=== PATIENT | male | born 1970 | race Caucasian/White ===

== ENCOUNTER 2017-12-02 22:46 | Emergency (ER) | payer MEDICAID ==
[~2017-12-02] VITALS: Ht 165.1 cm; Wt 79.8 kg
[2017-12-02 22:52] VITALS: BP_SYST 127
[2017-12-02] MEDS ORDERED: NACL 0.9% 1,000 ML IV ONE (23:47)
[2017-12-03] MEDS ORDERED: ONDANSETRON HCL 4 MG/2 ML VIAL IVP ONE
[2017-12-03] MEDS ORDERED: KETOROLAC TROMETHAMINE 30 MG VIAL IVP ONE
[2017-12-03 00:28] LABS: BASOPHILS # (AUTO) 0.2 K/uL (0.0-0.2); BASOPHILS % (AUTO) 1.6 % (0.0-2.0); EOSINOPHILS # (AUTO) 0.4 K/uL (0.0-0.4); EOSINOPHILS % (AUTO) 4.1 % (0.0-4.0); HEMATOCRIT 33.8 % (36-54); HEMOGLOBIN 10.9 g/dL (14.0-18.0); LYMPHOCYTES # (AUTO) 3.4 K/uL (1.0-5.5); LYMPHOCYTES % (AUTO) 34.9 % (20.5-51.5); MEAN CORPUSCULAR HEMOGLOBIN 23 pg (27-31); MEAN CORPUSCULAR HGB CONC 32 % (32-36); MEAN CORPUSCULAR VOLUME 72 fL (79.0-98.0); MONOCYTES # (AUTO) 0.7 K/uL (0.0-1.0); MONOCYTES % (AUTO) 7.3 % (1.7-9.3); NEUTROPHILS # (AUTO) 5.1 K/uL (1.8-7.7); NEUTROPHILS % (AUTO) 52.1 % (40.0-70.0); PLATELET COUNT (AUTO) 363 K/uL (130-430); RED BLOOD CELL COUNT(AUTO) 4.72 MIL/uL (4.2-6.2); RED CELL DISTRIBUTION WIDTH 16.5 % (9.0-15.0); WHITE BLOOD COUNT (AUTO) 9.8 K/uL (4.8-10.8)
[2017-12-03] MEDS ORDERED: LIDOCAINE VISCOUS 2%, 15 ML UDC MM ONE (00:45)
[2017-12-03] MEDS ORDERED: BELLADONNA ALKALOIDS/PHENOBARB 5 ML UDC PO ONE (00:45)
[2017-12-03] MEDS ORDERED: MAG-AL HYDROX/SIMETH 30 ML UDC PO ONE (00:45)
[2017-12-03 00:46] LABS: CALCIUM 8.6 mg/dL (8.4-11.0); CREATININE 0.74 mg/dL (0.55-1.30); POTASSIUM 3.4 mmol/L (3.5-5.1)
[2017-12-03 00:50] LABS: ALBUMIN 3.2 g/dL (3.4-4.8); TOTAL BILIRUBIN 0.3 mg/dL (0.0-1.0)
[2017-12-03 01:25] VITALS: BP_SYST 101
== END 2017-12-03 01:45 | disposition home or self-care (01) ==
LOC: SED 22:46
DX: K80.20 Calculus of gallbladder without cholecystitis without obstruction (principal); K29.70 Gastritis, unspecified, without bleeding; Z90.89 Acquired absence of other organs
CPT/HCPCS: 36415; 76700; 80053; 83690; 85025; 96374; 96375; 99285; J1885; J2001; J2405

== ENCOUNTER 2017-12-20 01:41 | Emergency (ER) | payer MEDICAID ==
[~2017-12-20] VITALS: Ht 152.4 cm; Wt 79.8 kg
[2017-12-20 01:48] VITALS: BP_SYST 140
[2017-12-20] MEDS ORDERED: ONDANSETRON HCL 4 MG/2 ML VIAL IVP ONE (02:00)
[2017-12-20] MEDS ORDERED: MORPHINE 4 MG/ML INJ. SYRINGE IVP ONE (02:00)
[2017-12-20 02:24] LABS: CALCIUM 8.6 mg/dL (8.4-11.0); CREATININE 0.85 mg/dL (0.55-1.30); POTASSIUM 3.7 mmol/L (3.5-5.1)
[2017-12-20 02:29] LABS: ALBUMIN 3.2 g/dL (3.4-4.8); TOTAL BILIRUBIN 0.3 mg/dL (0.0-1.0)
[2017-12-20 02:30] LABS: BASOPHILS # (AUTO) 0.1 K/uL (0.0-0.2); BASOPHILS % (AUTO) 1.2 % (0.0-2.0); EOSINOPHILS # (AUTO) 0.5 K/uL (0.0-0.4); EOSINOPHILS % (AUTO) 4.1 % (0.0-4.0); HEMATOCRIT 36.4 % (36-48); HEMOGLOBIN 11.6 g/dL (12.0-16.0); LYMPHOCYTES # (AUTO) 4.7 K/uL (1.0-5.5); MEAN CORPUSCULAR HEMOGLOBIN 23 pg (27-31); MEAN CORPUSCULAR HGB CONC 32 % (32-36); MONOCYTES # (AUTO) 0.7 K/uL (0.0-1.0); MONOCYTES % (AUTO) 5.9 % (1.7-9.3); NEUTROPHILS # (AUTO) 6.3 K/uL (1.8-7.7); PLATELET COUNT (AUTO) 352 K/uL (130-430); RED CELL DISTRIBUTION WIDTH 16.9 % (9.0-15.0); WHITE BLOOD COUNT (AUTO) 12.3 K/uL (4.8-10.8)
[2017-12-20] MEDS ORDERED: LIDOCAINE VISCOUS 2%, 15 ML UDC MM ONE (02:45)
[2017-12-20] MEDS ORDERED: MAG-AL HYDROX/SIMETH 30 ML UDC PO ONE (02:45)
[2017-12-20] MEDS ORDERED: KETOROLAC TROMETHAMINE 30 MG VIAL IVP ONE (02:45)
[2017-12-20 03:12] LABS: MEAN CORPUSCULAR VOLUME 71 fL (79.0-98.0)
[2017-12-20 03:13] LABS: NEUTROPHILS % (AUTO) 50.8 % (40.0-70.0)
[2017-12-20 03:23] LABS: BILIRUBIN,URINE NEGATIVE (NEGATIVE); BLOOD, URINE NEGATIVE (NEGATIVE); CLARITY/URINE SL HAZY (CLEAR); COLOR,URINE YELLOW (YELLOW); GLUCOSE,URINE NEGATIVE (NEGATIVE); KETONES,URINE TRACE (NEGATIVE); LEUKOCYTE ESTERASE ,URINE NEGATIVE (NEGATIVE); NITRITE, URINE NEGATIVE (NEGATIVE); PROTEIN URINE TRACE (NEGATIVE); UROBILINOGEN,URINE 0.2 (0.2-1.0)
[2017-12-20 04:13] VITALS: BP_SYST 112
== END 2017-12-20 04:13 | disposition home or self-care (01) ==
LOC: SED 01:41
DX: K80.20 Calculus of gallbladder without cholecystitis without obstruction (principal); R03.0 Elevated blood-pressure reading, without diagnosis of hypertension
CPT/HCPCS: 36415; 74176; 80053; 81003; 82150; 83690; 85025; 96374; 96375; 99285; J1885; J2001; J2270; J2405

== ENCOUNTER 2017-12-22 02:01 | Emergency (ER) | payer MEDICAID ==
[~2017-12-22] VITALS: Ht 165.1 cm; Wt 75.7 kg
[2017-12-22 02:06] VITALS: BP_SYST 150
[2017-12-22] MEDS ORDERED: NACL 0.9% 1,000 ML IV ONE (03:25)
[2017-12-22] MEDS ORDERED: ONDANSETRON HCL 4 MG/2 ML VIAL IVP ONE (03:30)
[2017-12-22] MEDS ORDERED: PANTOPRAZOLE SODIUM 40 MG/VIAL (PROTONIX) IVP ONE (03:30)
[2017-12-22] MEDS ORDERED: KETOROLAC TROMETHAMINE 30 MG VIAL IVP ONE (03:30)
[2017-12-22] MEDS ORDERED: DIPHENHYDRAMINE INJ 50 MG/ML VIAL IVP ONE (03:30)
[2017-12-22] MEDS ORDERED: MORPHINE 4 MG/ML INJ. SYRINGE IVP ONE (03:30)
[2017-12-22 03:44] LABS: BASOPHILS # (AUTO) 0.1 K/uL (0.0-0.2); BASOPHILS % (AUTO) 0.5 % (0.0-2.0); EOSINOPHILS # (AUTO) 0.4 K/uL (0.0-0.4); EOSINOPHILS % (AUTO) 3.2 % (0.0-4.0); HEMATOCRIT 36.4 % (36-48); HEMOGLOBIN 11.1 g/dL (12.0-16.0); LYMPHOCYTES # (AUTO) 3.9 K/uL (1.0-5.5); LYMPHOCYTES % (AUTO) 33.5 % (20.5-51.5); MEAN CORPUSCULAR HEMOGLOBIN 22 pg (27-31); MEAN CORPUSCULAR HGB CONC 31 % (32-36); MEAN CORPUSCULAR VOLUME 72 fL (79.0-98.0); MONOCYTES # (AUTO) 0.8 K/uL (0.0-1.0); MONOCYTES % (AUTO) 6.7 % (1.7-9.3); NEUTROPHILS # (AUTO) 6.5 K/uL (1.8-7.7); NEUTROPHILS % (AUTO) 56.1 % (40.0-70.0); PLATELET COUNT (AUTO) 328 K/uL (130-430); RED BLOOD CELL COUNT(AUTO) 5.06 MIL/uL (4.2-6.2); RED CELL DISTRIBUTION WIDTH 16.3 % (9.0-15.0); WHITE BLOOD COUNT (AUTO) 11.7 K/uL (4.8-10.8)
[2017-12-22 03:55] LABS: CALCIUM 8.5 mg/dL (8.4-11.0); CREATININE 0.76 mg/dL (0.55-1.30); POTASSIUM 3.4 mmol/L (3.5-5.1)
[2017-12-22 04:01] LABS: ALBUMIN 3.1 g/dL (3.4-4.8); TOTAL BILIRUBIN 0.3 mg/dL (0.0-1.0)
[2017-12-22 04:50] VITALS: BP_SYST 135
== END 2017-12-22 04:50 | disposition home or self-care (01) ==
LOC: SED 02:01
DX: K80.20 Calculus of gallbladder without cholecystitis without obstruction (principal)
CPT/HCPCS: 36415; 80053; 83690; 85025; 96361; 96374; 96375; 99284; C9113; J1200; J1885; J2270; J2405; J7030

== ENCOUNTER 2018-11-15 03:24 | Emergency (ER) | payer MEDICAID ==
[~2018-11-15] VITALS: Ht 152.4 cm; Wt 74.8 kg
[2018-11-15 03:24] VITALS: BP_SYST 152
--- NOTE | 2018-11-15 03:24 | NUR ---
Pt ambulatory to bed 8 for evaluation
[2018-11-15] MEDS ORDERED: NACL 0.9% 1,000 ML IV ONE (03:29)
[2018-11-15] MEDS ORDERED: ONDANSETRON HCL 4 MG/2 ML VIAL IVP ONE (03:30)
[2018-11-15] MEDS ORDERED: KETOROLAC TROMETHAMINE 30 MG VIAL IVP ONE (03:30)
--- NOTE | 2018-11-15 03:30 | NUR ---
Patient brought to ER by son for complaint of epigastric pain 10/10 radiating to right lower back since 0000 tonight. Patient also complains of N/V. Patient medicated with 2 doses of [place] without relief. Patient has hx of gallstones and gastritis.
--- NOTE | 2018-11-15 03:35 | NUR ---
ER at bedside examining patient.
--- NOTE | 2018-11-15 03:38 | NUR ---
# 20 gauge angiocath placed to LAC. Use of asceptic technique. Opsite placed over site. Blood return noted. Blood for lab drawn from site. Flushed with 10 cc of normal saline. No evidence of infiltration noted. Patient tolerated well.
[2018-11-15 03:47] LABS: BASOPHILS # (AUTO) 0.1 K/uL (0.0-0.2); BASOPHILS % (AUTO) 0.8 % (0.0-2.0); EOSINOPHILS # (AUTO) 0.5 K/uL (0.0-0.4); EOSINOPHILS % (AUTO) 4.4 % (0.0-4.0); HEMATOCRIT 40.7 % (36-48); HEMOGLOBIN 12.8 g/dL (12.0-16.0); LYMPHOCYTES # (AUTO) 4.4 K/uL (1.0-5.5); LYMPHOCYTES % (AUTO) 37.1 % (20.5-51.5); MEAN CORPUSCULAR HEMOGLOBIN 23 pg (27-31); MEAN CORPUSCULAR HGB CONC 32 % (32-36); MEAN CORPUSCULAR VOLUME 71 fL (79.0-98.0); MONOCYTES # (AUTO) 0.7 K/uL (0.0-1.0); NEUTROPHILS # (AUTO) 6.2 K/uL (1.8-7.7); NEUTROPHILS % (AUTO) 51.7 % (40.0-70.0); PLATELET COUNT (AUTO) 309 K/uL (130-430); RED BLOOD CELL COUNT(AUTO) 5.71 MIL/uL (4.2-6.2); RED CELL DISTRIBUTION WIDTH 17.9 % (9.0-15.0); WHITE BLOOD COUNT (AUTO) 11.9 K/uL (4.8-10.8)
[2018-11-15 04:03] LABS: CALCIUM 8.9 mg/dL (8.4-11.0); CREATININE 0.87 mg/dL (0.55-1.30); POTASSIUM 3.7 mmol/L (3.5-5.1)
[2018-11-15 04:07] LABS: ALBUMIN 3.4 g/dL (3.4-4.8); TOTAL BILIRUBIN 0.3 mg/dL (0.0-1.0)
--- NOTE | 2018-11-15 04:15 | NUR ---
No adverse reactions noted after medication administration. Will continue to monitor.
--- NOTE | 2018-11-15 04:50 | NUR ---
End of life care decisions discussed with patient by Dr. Lorenzana. Opportunity for questions and concerns addressed. Patient's code status is FULL CODE, paperwork completed and placed in chart.
--- NOTE | 2018-11-15 04:52 | NUR ---
Medication reconciliation completed with information provided by patient "no home meds". Any prior medication reconciliation on file was reviewed and corrected.
[2018-11-15] MEDS ORDERED: PANTOPRAZOLE SODIUM 40 MG/VIAL (PROTONIX) IVP ONE (05:15)
[2018-11-15 05:48] VITALS: BP_SYST 143
--- NOTE | 2018-11-15 05:48 | NUR ---
Patient given written and verbal discharge instructions and verbalizes understanding. ER MD discussed with patient the results and treatment provided. Patient in stable condition. ID arm band removed. IV catheter removed intact and dressing applied, no active bleeding. Rx of Zofran given. Patient educated on pain management and to follow up with PMD. Pain Scale 0/10. Opportunity for questions provided and answered. Medication side effect fact sheet provided.
== END 2018-11-15 05:48 | disposition home or self-care (01) ==
LOC: SED 03:24
DX: K80.20 Calculus of gallbladder without cholecystitis without obstruction (principal)
CPT/HCPCS: 36415; 80053; 76700; 83690; 85025; 96361; 96374; 96375; 99284; C9113; J1885; J2405

== ENCOUNTER 2022-04-14 21:11 | Emergency (ER) | payer OTHER, MEDICAID ==
[~2022-04-14] VITALS: Ht 152.4 cm; Wt 90.7 kg
[2022-04-14 21:24] VITALS: BP_SYST 128
--- NOTE | 2022-04-14 21:30 | NUR ---
Patient triaged and placed in room 2. VSS and patient appears in no acute distress at this time. MD Mcfarland notified of need for MSE. Triage report given to AGUSTÍN Lozada.
--- NOTE | 2022-04-14 21:33 | NUR ---
Patient taken to lab for blood draw.
[2022-04-14 22:04] LABS: BASOPHILS # (AUTO) 0.1 K/uL (0.0-0.2); BASOPHILS % (AUTO) 0.6 % (0.0-2.0); EOSINOPHILS # (AUTO) 0.5 K/uL (0.0-0.4); EOSINOPHILS % (AUTO) 3.9 % (0.0-4.0); HEMATOCRIT 38.8 % (36-48); HEMOGLOBIN 12.5 g/dL (12.0-16.0); LYMPHOCYTES # (AUTO) 4.7 K/uL (1.0-5.5); LYMPHOCYTES % (AUTO) 40.1 % (20.5-51.5); MEAN CORPUSCULAR HEMOGLOBIN 23 pg (27-31); MEAN CORPUSCULAR HGB CONC 32 % (32-36); MEAN CORPUSCULAR VOLUME 72 fL (79.0-98.0); MONOCYTES # (AUTO) 0.8 K/uL (0.0-1.0); MONOCYTES % (AUTO) 6.6 % (1.7-9.3); NEUTROPHILS # (AUTO) 5.7 K/uL (1.8-7.7); NEUTROPHILS % (AUTO) 48.8 % (40.0-70.0); PLATELET COUNT (AUTO) 280 K/uL (130-430); RED BLOOD CELL COUNT(AUTO) 5.42 MIL/uL (4.2-6.2); RED CELL DISTRIBUTION WIDTH 17.4 % (9.0-15.0); WHITE BLOOD COUNT (AUTO) 11.6 K/uL (4.8-10.8)
[2022-04-14 22:17] LABS: ANION GAP 11 (5-15); CHLORIDE 103 mmol/L (98-107); GFR AFRICAN AMERICAN 97 mL/min (>90); GLUCOSE 140 mg/dL (70-99); UREA NITROGEN, BLOOD 19 mg/dL (8-21)
[2022-04-14 22:27] LABS: ALANINE AMINOTRANSFERASE 25 U/L (12-78); ALBUMIN 3.4 g/dL (3.4-4.8); ASPARTATE AMINOTRANSFERASE 12 U/L (10-37); TOTAL BILIRUBIN 0.2 mg/dL (0.0-1.0)
--- NOTE | 2022-04-14 23:27 | NUR ---
Pt coming from home ambulatory with steady gait. Pt c/o left shoulder pain that started 1 month ago but got worse last night. Rates pain 9/10 non-radiating. Pain started abruptly no trauma. VSS. NKA. No known medical conditions. Skin intact. Bed in lowest position.
--- NOTE | 2022-04-14 23:30 | NUR ---
KORY Sterling at bedside examining patient.
[2022-04-15] MEDS ORDERED: KETOROLAC TROMETHAMINE 30 MG VIAL IM ONE
[2022-04-15] MEDS ORDERED: CYCLOBENZAPRINE HCL 10 MG TABLET (FLEXERIL) PO ONE
--- NOTE | 2022-04-15 02:36 | NUR ---
Arm spling placed on left arm.
[2022-04-15] MEDS ORDERED: CYCL10TA24 PO (02:46)
[2022-04-15] MEDS ORDERED: HYDR-3917 PO (02:48)
[2022-04-15] MEDS ORDERED: NAPR-686 PO (02:48)
--- NOTE | 2022-04-15 02:53 | NUR ---
Patient given written and verbal discharge instructions and verbalizes understanding. ER MD discussed with patient the results and treatment provided. Patient in stable condition. ID arm band removed. Rx of [place], Naproxen, and Flexeril given. Patient educated on pain management and to follow up with PMD. Pain Scale 0/10. Opportunity for questions provided and answered. Medication side effect fact sheet provided.
[2022-04-15 02:54] VITALS: BP_SYST 115
== END 2022-04-15 02:54 | disposition home or self-care (01) ==
LOC: SED 21:11
DX: M75.52 Bursitis of left shoulder (principal); Z79.899 Other long term (current) drug therapy
CPT/HCPCS: 99284; 71045 ×2; 80053; 85025; 84484; 36415; 96372; J1885

== ENCOUNTER 2022-11-20 11:38 | Emergency (ER) | payer MEDICAID, OTHER ==
[~2022-11-20] VITALS: Ht 152.4 cm; Wt 86.6 kg
[~2022-11-20 11:38] MED LIST: CYCL10TA24 PO; HYDR-3917 PO; NAPR-686 PO
[2022-11-20 11:57] VITALS: BP_SYST 117
[2022-11-20 12:45] VITALS: BP_SYST 112
== END 2022-11-20 12:45 | disposition home or self-care (01) ==
LOC: SED 11:38
DX: H00.025 Hordeolum internum left lower eyelid (principal); H57.12 Ocular pain, left eye; Z79.899 Other long term (current) drug therapy
CPT/HCPCS: 99281

== ENCOUNTER 2023-07-04 11:00 | Emergency (ER) | payer MEDICAID ==
[~2023-07-04] VITALS: Ht 152.4 cm; Wt 82.6 kg
[2023-07-04 11:10] VITALS: BP_SYST 109; PULSE 78; RESP 18; TEMP 97.7; O2SAT 98
[2023-07-04 11:45] LABS: BILIRUBIN,URINE NEGATIVE (NEGATIVE); BLOOD, URINE 1+ (NEGATIVE); CLARITY/URINE CLOUDY (CLEAR); COLOR,URINE YELLOW (YELLOW); GLUCOSE,URINE NEGATIVE (NEGATIVE); KETONES,URINE NEGATIVE (NEGATIVE); LEUKOCYTE ESTERASE ,URINE NEGATIVE (NEGATIVE); NITRITE, URINE NEGATIVE (NEGATIVE); PH,URINE 5.5 (5.0-8.0); PROTEIN URINE NEGATIVE (NEGATIVE); UROBILINOGEN,URINE 0.2 (0.2-1.0)
[2023-07-04 11:49] LABS: BASOPHILS # (AUTO) 0.1 K/uL (0.0-0.2); BASOPHILS % (AUTO) 0.6 % (0.0-2.0); EOSINOPHILS # (AUTO) 0.3 K/uL (0.0-0.4); EOSINOPHILS % (AUTO) 2.8 % (0.0-4.0); HEMATOCRIT 40.5 % (36-48); HEMOGLOBIN 13.1 g/dL (12.0-16.0); LYMPHOCYTES # (AUTO) 3.9 K/uL (1.0-5.5); LYMPHOCYTES % (AUTO) 32.2 % (20.5-51.5); MEAN CORPUSCULAR HEMOGLOBIN 23 pg (27-31); MEAN CORPUSCULAR HGB CONC 32 % (32-36); MEAN CORPUSCULAR VOLUME 72 fL (79.0-98.0); MONOCYTES # (AUTO) 0.6 K/uL (0.0-1.0); MONOCYTES % (AUTO) 5.2 % (1.7-9.3); NEUTROPHILS # (AUTO) 7.2 K/uL (1.8-7.7); NEUTROPHILS % (AUTO) 59.2 % (40.0-70.0); PLATELET COUNT (AUTO) 314 K/uL (130-430); RED CELL DISTRIBUTION WIDTH 16.2 % (9.0-15.0); WHITE BLOOD COUNT (AUTO) 12.1 K/uL (4.8-10.8)
[2023-07-04 11:57] LABS: CREATININE 0.67 mg/dL (0.55-1.30); POTASSIUM 4.1 mmol/L (3.5-5.1)
[2023-07-04 12:19] LABS: ALBUMIN 3.4 g/dL (3.4-4.8); BILIRUBIN,DIRECT 0.1 mg/dL (0.0-0.3); TOTAL BILIRUBIN 0.5 mg/dL (0.0-1.0); TOTAL PROTEIN, SERUM 7.7 g/dL (6.4-8.3)
[2023-07-04 12:25] LABS: BACTERIA,URINE MODERATE /HPF (None Seen); RBC,URINE 0-3 /HPF (0-3); WBC,URINE 0-3 /HPF (0-3)
[2023-07-04 12:57] LABS: HYPOCHROMASIA 1+
[2023-07-04] MEDS ORDERED: TRAM50TA2 PO (13:55)
[2023-07-04] MEDS ORDERED: IBUP-1969 PO (13:55)
[2023-07-04 16:00] VITALS: BP_SYST 109; PULSE 78; RESP 18; TEMP 97.7; O2SAT 98
== END 2023-07-04 14:27 | disposition home or self-care (01) ==
LOC: SED 11:00
DX: R10.9 Unspecified abdominal pain (principal); Z79.899 Other long term (current) drug therapy
CPT/HCPCS: 36415; 76376; 80048; 80076; 81000; 81001; 81015; 82150; 83605; 83690; 85025; 87086; 99284